=== PATIENT | female | born 1955 | race African-American/Black ===

== ENCOUNTER 2016-05-04 08:31 | Emergency (ER) | payer BC ==
[~2016-05-04] VITALS: Ht 157.5 cm; Wt 104.3 kg
[~2016-05-04 08:31] MED LIST: AMLO5TAB2 PO; ASPI81TA9 PO; CARV6.252 PO; GLUC500T PO; LOSA100T6 PO; METO5TAB55 PO; MULT-658 PO; NAPR220T70 PO; RUTI1TAB PO
[2016-05-04 08:48] LABS: BILIRUBIN,URINE NEGATIVE (NEG); GLUCOSE,URINE NEGATIVE (NEG); NITRITE,URINE NEGATIVE (NEG); PROTEIN,URINE NEGATIVE (NEG-TRACE); UROBILINOGEN,URINE 0.2 mg/dL (0.2 mg/dL)
--- NOTE | 2016-05-04 08:57 | PHYS DOC ---
Past Medical History Past Medical History: Cancer, Hypertension Past Surgical History: Cholecystectomy Adult General Chief Complaint Chief Complaint: ABDOMINAL PAIN HPI HPI Patient is a 60 year old female presents to the emergency department per POV. Patient states she has been having lower abdominal pain since April 23. Patient states she has been seen by her PCP and diagnosed with UTI and an yeast infection. Patient states she is on Macrobid for the UTI and diflucan for the yeast infection. Patient states she has increased pain to the right lower quadrant pain. Patient denies vaginal discharge, denies fever, chills, nausea or vomiting or diarrhea. Patient states she had a stool this morning that was normal. Patient states she has been febrile at home. Review of Systems Review of Systems Constitutional: Denies fever or chills [] Eyes: Denies change in visual acuity, redness, or eye pain [] HENT: Denies nasal congestion or sore throat [] Respiratory: Denies cough or shortness of breath [] Cardiovascular: No additional information not addressed in HPI [] GI: Right lower quadrant abdominal pain, denies nausea, vomiting, bloody stools or diarrhea [] : Denies dysuria or hematuria [] Musculoskeletal: Denies back pain or joint pain [] Integument: Denies rash or skin lesions [] Neurologic: Denies headache, focal weakness or sensory changes [] Current Medications Current Medications Current Medications Medications (Trade) Dose Ordered Sig/Meño Start Time Stop Time Status Last Admin Dose Admin Iohexol (Omnipaque 300 Mg/ml) 75 ml 1X ONCE 05/04/16 10:15 05/04/16 10:16 DC Allergies Allergies Allergies Coded Allergies Type Severity Reaction Last Updated Verified No Known Drug Allergies 06/01/13 No Physical Exam Physical Exam Constitutional: Well developed, well nourished, no acute distress, non-toxic appearance. [] HENT: Normocephalic, atraumatic, bilateral external ears normal, oropharynx moist, no oral exudates, nose normal. [] Eyes: PERRLA, EOMI, conjunctiva normal, no discharge. [] Neck: Normal range of motion, no tenderness, supple, no stridor. [] Cardiovascular:Heart rate regular rhythm, no murmur [] Lungs & Thorax: Bilateral breath sounds clear to auscultation [] Abdomen: Bowel sounds hypoactive, soft, right lower quadrant tenderness, no masses, no pulsatile masses. No rebound tenderness noted, no guarding noted. Skin: Warm, dry, no erythema, no rash. [] Back: No tenderness Extremities: No tenderness, no cyanosis, no clubbing, ROM intact, no edema. [] Neurologic: Alert and oriented X 3, normal motor function, normal sensory function, no focal deficits noted. [] Psychologic: Affect normal, judgement normal, mood normal. [] Current Patient Data Vital Signs Vital Signs Date Time Temp Pulse Resp B/P Pulse Ox O2 Delivery O2 Flow Rate FiO2 05/04/16 08:45 98.2 84 20 152/83 100 Room Air 98.2 Lab Values Laboratory Tests Test 05/04/16 08:40 05/04/16 09:00 Urine Collection Type Void Urine Color Yellow Urine Clarity Clear Urine pH 6.0 Urine Specific [place] <=1.005 Urine Protein Negativemg/dL (NEG-TRACE) Urine Glucose (UA) Negativemg/dL (NEG) Urine Ketones (Stick) Negativemg/dL (NEG) Urine Blood Negative (NEG) Urine Nitrite Negative (NEG) Urine Bilirubin Negative (NEG) Urine Urobilinogen Dipstick 0.2mg/dL (0.2 mg/dL) Urine Leukocyte Esterase Negative (NEG) Urine RBC 0/HPF (0-2) Urine WBC Occ/HPF (0-4) Urine Squamous Epithelial Cells Few/LPF Urine Bacteria Few/HPF (0-FEW) White Blood Count 5.4x10^3/uL (4.0-11.0) Red Blood Count 4.48x10^6/uL (3.50-5.40) Hemoglobin 13.2g/dL (12.0-15.5) Hematocrit 39.2% (36.0-47.0) Mean Corpuscular Volume 88fL (79-100) Mean Corpuscular Hemoglobin 29pg (25-35) Mean Corpuscular Hemoglobin Concent 34g/dL (31-37) Red Cell Distribution Width 12.9% (11.5-14.5) Platelet Count 218x10^3/uL (140-400) Neutrophils (%) (Auto) 61% (31-73) Lymphocytes (%) (Auto) 26% (24-48) Monocytes (%) (Auto) 10% (0-9) H Eosinophils (%) (Auto) 1% (0-3) Basophils (%) (Auto) 1% (0-3) Neutrophils # (Auto) 3.3x10^3uL (1.8-7.7) Lymphocytes # (Auto) 1.4x10^3/uL (1.0-4.8) Monocytes # (Auto) 0.6x10^3/uL (0.0-1.1) Eosinophils # (Auto) 0.0x10^3/uL (0.0-0.7) Basophils # (Auto) 0.1x10^3/uL (0.0-0.2) Sodium Level 139mmol/L (136-145) Potassium Level 3.7mmol/L (3.5-5.1) Chloride Level 102mmol/L (98-107) Carbon Dioxide Level 27mmol/L (21-32) Anion Gap 10 (6-14) Blood Urea Nitrogen 17mg/dL (7-20) Creatinine 0.7mg/dL (0.6-1.0) Estimated GFR (Cockcroft-Gault) 102.6 BUN/Creatinine Ratio 24 (6-20) H Glucose Level 138mg/dL (70-99) H Calcium Level 9.3mg/dL (8.5-10.1) Total Bilirubin 0.3mg/dL (0.2-1.0) Aspartate Amino Transferase (AST) 14U/L (15-37) L Alanine Aminotransferase (ALT) 27U/L (14-59) Alkaline Phosphatase 83U/L (46-116) Total Protein 8.0g/dL (6.4-8.2) Albumin 3.5g/dL (3.4-5.0) Albumin/Globulin Ratio 0.8 (1.0-1.7) L Laboratory Tests 05/04/16 09:00 Laboratory Tests 05/04/16 09:00 EKG EKG [] Radiology/Procedures Radiology/Procedures [][facility] [address] [place], [place] [id number] IMAGING REPORT Signed PATIENT: DAVID ACOSTA ACCOUNT: [id number] : 1955 LOCATION: ER AGE: 60 SEX: F EXAM STATUS: REG ER ORD. PHYSICIAN: ELEAZAR VELASQUEZ NP REASON: right lower quadrant abdominal pain, since April 23 increase pain today PROCEDURE: ABD PELV W/ IV CONTRAST ONLY CT abdomen and pelvis with IV contrast History: Right lower quadrant abdominal pain since April 23, 2016, increasing pain today. Comparison: CT abdomen pelvis 02/02/2011. Technique: After administration of intravenous contrast, 75 mL Omnipaque 300, helical CT of the abdomen and pelvis was performed from the lung bases through the ischial tuberosities. Axial, sagittal, and coronal reconstructions were obtained. One or more of the following individualized dose reduction techniques were utilized for the study: Automated exposure control Adjustment of mA and/or kV according to patient's size Use of iterative reconstruction technique. Findings: Evaluation of enteric structures may be limited by lack of oral contrast. Liver, spleen, pancreas, and bilateral adrenal glands are unremarkable. Cholecystectomy clips are present. Bilateral kidneys enhance symmetrically. Right kidney demonstrates large exophytic cyst measuring 6.6 cm. There is no evidence of bowel obstruction. No free air or free fluid is identified in the abdomen or pelvis. Uterus and adnexa have unremarkable CT appearance. Appendix appears within normal limits. Urinary bladder is unremarkable. Impression: No acute abnormality identified in the abdomen or pelvis. DICTATED and SIGNED BY: AMADOR TUTTLE MD DATE: 05/04/16 1024 CC: ELEAZAR VELASQUEZ NP; AMADOR AVITIA MD ~ Course & Med Decision Making Course & Med Decision Making Pertinent Labs and Imaging studies reviewed. (See chart for details) CBC, CMP within normal limits. Patient's CT scan was negative for no acute abnormalities identified in the abdomen or pelvis although there was a right kidney that demonstrated large exophytic cyst. Patient will be recommended to follow-up with her primary care physician for further evaluations of the cyst. She'll be provided with hydrocodone for pain and discomfort. She'll also be encouraged to drink plenty of fluids and have a high-fiber diet to prevent constipation. Patient will also be encouraged to continue home medications as prescribed. Patient will be provided with signs and symptoms to return back to emergency department. Patient agrees with discharge instructions treatment regimens and follow-up recommendations. [] Dragon Disclaimer Dragon Disclaimer This electronic medical record was generated, in whole or in part, using a voice recognition dictation system. Departure Departure Impression: Primary Impression: Abdominal pain Disposition: HOME, SELF-CARE Condition: STABLE Referrals: AMADOR AVITIA MD (PCP) Patient Instructions: Abdominal Pain, [id number] Additional Instructions: Activity as tolerated. Medications as she had been prescribed at home. Hydrocodone for pain and discomfort. This medication will cause drowsiness do not take any be alert and oriented. You may also drink plenty of fluids and high-fiber diet to prevent constipation. Follow-up with your primary care physician in regards to this cyst on your kidney. Return back to emergency prior signs and symptoms of become worse. Scripts Hydrocodone/Apap 5-325 ([place] 5-325 Tablet)1 Each Tablet1 Tab PO PRN Q6HRS PRN PAIN #10 TAB Prov:ELEAZAR VELASQUEZ NP 05/04/16 ELEAZAR VELASQUEZ NP May 04, 2016 08:57
[2016-05-04 08:58] LABS: BACTERIA,URINE FEW /HPF (0-FEW); RBC,URINE 0 /HPF (0-2); SQUAMOUS EPITHELIAL CELL,UR FEW /LPF; WBC,URINE OCC /HPF (0-4)
[2016-05-04 09:15] LABS: BASO # 0.1 x10^3/uL (0.0-0.2); BASO % 1 % (0-3); EOS % 1 % (0-3); HEMATOCRIT 39.2 % (36.0-47.0); HEMOGLOBIN 13.2 g/dL (12.0-15.5); LYMPH # 1.4 x10^3/uL (1.0-4.8); LYMPH % 26 % (24-48); MEAN CORPUSCULAR HEMOGLOBIN 29 pg (25-35); MEAN CORPUSCULAR HGB CONC 34 g/dL (31-37); MEAN CORPUSCULAR VOLUME 88 fL (79-100); MONO % 10 % (0-9); NEUT % 61 % (31-73); PLATELET COUNT 218 x10^3/uL (140-400); RED BLOOD COUNT 4.48 x10^6/uL (3.50-5.40); RED CELL DISTRIBUTION WIDTH 12.9 % (11.5-14.5); WHITE BLOOD COUNT 5.4 x10^3/uL (4.0-11.0)
[2016-05-04] MEDS ORDERED: IOHEXOL 300 MG/ML 100ML VIAL. IV ONE ×2 (09:15→10:15)
[2016-05-04 09:33] LABS: CALCIUM 9.3 mg/dL (8.5-10.1); CREATININE 0.7 mg/dL (0.6-1.0); GFR 102.6; POTASSIUM 3.7 mmol/L (3.5-5.1)
[2016-05-04 09:41] LABS: ALBUMIN 3.5 g/dL (3.4-5.0); ALBUMIN/GLOBULIN RATIO 0.8 (1.0-1.7); TOTAL BILIRUBIN 0.3 mg/dL (0.2-1.0)
--- NOTE | 2016-05-04 10:30 | RAD ---
CT abdomen and pelvis with IV contrast History: Right lower quadrant abdominal pain since April 23, 2016, increasing pain today. Comparison: CT abdomen pelvis 02/02/2011. Technique: After administration of intravenous contrast, 75 mL Omnipaque 300, helical CT of the abdomen and pelvis was performed from the lung bases through the ischial tuberosities. Axial, sagittal, and coronal reconstructions were obtained. One or more of the following individualized dose reduction techniques were utilized for the study: Automated exposure control Adjustment of mA and/or kV according to patient's size Use of iterative reconstruction technique. Findings: Evaluation of enteric structures may be limited by lack of oral contrast. Liver, spleen, pancreas, and bilateral adrenal glands are unremarkable. Cholecystectomy clips are present. Bilateral kidneys enhance symmetrically. Right kidney demonstrates large exophytic cyst measuring 6.6 cm. There is no evidence of bowel obstruction. No free air or free fluid is identified in the abdomen or pelvis. Uterus and adnexa have unremarkable CT appearance. Appendix appears within normal limits. Urinary bladder is unremarkable. Impression: No acute abnormality identified in the abdomen or pelvis.
[2016-05-04] MEDS ORDERED: HYDR-971 PO (10:45)
[2016-05-04 11:00] VITALS: BP 124/74
== END 2016-05-04 11:10 | disposition home or self-care (01) ==
LOC: ER 08:31
DX: R10.31 Right lower quadrant pain (principal); R50.9 Fever, unspecified; I10 Essential (primary) hypertension; Z90.49 Acquired absence of other specified parts of digestive tract
CPT/HCPCS: 36415; 74177; 80053; 81001; 85027; 99285-25

== ENCOUNTER → 2016-06-07 | Outpatient (CLI) | payer BC ==
[~2016-06-07] MED LIST changes: +HYDR-971 PO
--- NOTE | 2016-06-07 10:03 | RAD ---
EXAM: DIGITAL SCREEN BILAT W/CAD HISTORY: Routine Screening. COMPARISON: 06/05/2015 Standard mammographic views are obtained of the bilateral breasts. This study was interpreted with the benefit of Computerized Aided Detection (CAD). FINDINGS: The breast parenchyma shows scattered fibroglandular densities. Breast parenchyma level II. There is repeat demonstration of focal asymmetry within the right breast with architectural distortion and small size of right breast compared to left which could be from the patient's postoperative changes. No definite new mass is visualized. IMPRESSION: No definite new suspicious mass. BI-RADS CATEGORY: 2 BENIGN FINDING RECOMMENDED FOLLOW-UP: 12M 12 MONTH FOLLOW-UP PQRS compliance statement: Patient information was entered into a reminder system with a target due date for the next mammogram. Mammography is a sensitive method for finding small breast cancers, but it does not detect them all and is not a substitute for careful clinical examination. A negative mammogram does not negate a clinically suspicious finding and should not result in delay in biopsying a clinically suspicious abnormality. "Our facility is accredited by the [employer] Mammography [employer]."
== END | disposition home or self-care (01) ==
LOC: MAMMO 08:33
PROVIDERS: ATTEND Internal Medicine
DX: Z12.31 Encounter for screening mammogram for malignant neoplasm of breast (principal)
CPT/HCPCS: G0202; 77067

== ENCOUNTER → 2017-06-09 | Outpatient (CLI) | payer BC | END | disposition home or self-care (01) | LOC: MAMMO 09:18 | DX: Z12.31 Encounter for screening mammogram for malignant neoplasm of breast (principal); Z85.3 Personal history of malignant neoplasm of breast | CPT/HCPCS: 77067 ==

== ENCOUNTER → 2017-10-13 | Outpatient (CLI) | payer BC | END | disposition home or self-care (01) | LOC: RAD 15:40 | DX: M25.562 Pain in left knee (principal) | CPT/HCPCS: 73562 ==

== ENCOUNTER → 2018-06-09 | Outpatient (CLI) | payer OTHER ==
[~2018-06-09] MED LIST changes: +AMLO5TAB10 PO; -AMLO5TAB2 PO; +ASPI-612 PO; -ASPI81TA9 PO; +CARV6.2511 PO; -CARV6.252 PO; +HYDR-3164 PO; -HYDR-971 PO; +LOSA100T14 PO; -LOSA100T6 PO
--- NOTE | 2018-06-10 09:07 | RAD ---
DATE: 06/09/2018 EXAM: MAMMO KARL SCREENING BILATERAL HISTORY: Previous right breast cancer COMPARISON: 06/09/2017 This study was interpreted with the benefit of Computerized Aided Detection (CAD). Breast Density: SCATTERED The breast parenchyma shows scattered fibroglandular densities. Breast parenchyma level B. FINDINGS: 2-D and 3-D tomosynthesis imaging was performed in CC and MLO projections. There is a spiculated density with breast distortion in the posterolateral aspect of the right breast which is unchanged. This is compatible with post surgical and post radiation change. There is unchanged skin thickening on the right. The underlying fibroglandular pattern in both breasts is heterogeneous. Several small nodular opacities are seen in the left breast, better demonstrated on today's tomosynthesis imaging. Multiple smooth nodule such as this tended to be benign. The largest of these measures 6 mm and is present anteromedially. No spiculated mass or architectural distortion is evident on the left. Benign type calcifications are noted bilaterally. No suspicious microcalcifications are evident. IMPRESSION: 1. Stable post therapeutic findings in the right breast. 2. Several smooth left breast nodules are better demonstrated on today's tomosynthesis imaging due to technical factors. Left breast ultrasound is suggested for further evaluation. BI-RADS CATEGORY: 0 INCOMPLETE: NEEDS ADDITIONAL IMAGING EVALUATION AND/OR PRIOR MAMMOGRAMS FOR COMPARISON. RECOMMENDED FOLLOW-UP: ADD ADDITIONAL IMAGING PQRS compliance statement: Patient information was entered into a reminder system with a target due date for the next mammogram. Mammography is a sensitive method for finding small breast cancers, but it does not detect them all and is not a substitute for careful clinical examination. A negative mammogram does not negate a clinically suspicious finding and should not result in delay in biopsying a clinically suspicious abnormality. "Our facility is accredited by the [employer] Mammography Program."
== END | disposition home or self-care (01) ==
LOC: MAMMO 12:51
PROVIDERS: ATTEND Internal Medicine
DX: Z12.31 Encounter for screening mammogram for malignant neoplasm of breast (principal); N63.20 Unspecified lump in the left breast, unspecified quadrant
CPT/HCPCS: 77063; 77067

== ENCOUNTER → 2018-06-11 | Outpatient (CLI) | payer OTHER ==
--- NOTE | 2018-06-11 12:07 | RAD ---
Left breast ultrasound, 06/11/2018: History: Suspicious screening mammogram The entire breast was carefully scanned. At the 10:00 location approximately 5 cm on the nipple there is a 6 x 4 x 4 mm hypoechoic nodule. Some of its margins are smooth. There is no definite posterior acoustic enhancement or shadowing. Its shape is of some concern being taller than wide. This probably corresponds to the dominant nodule seen on the mammograms, however, that cannot be stated with certainty. At the 2:00 location approximately 5 cm from the nipple there is a 3 x 3 x 4 mm hypoechoic nodule. It is wider than tall. Some of its margins are smooth. There is no definite posterior acoustic enhancement or shadowing. A complicated cyst is suspected. No other breast masses or abnormal fluid collection is seen. IMPRESSION: 1. Mildly suspicious nodule at the 10:00 location as described above. Ultrasound-guided biopsy is suggested for further evaluation. 2. Probably benign nodule at the 2:00 location. Sonographic and mammographic follow-up in 6 months is suggested for surveillance of this nodule. Note: The findings were discussed with the patient at the time of the examination and she understands our recommendation for biopsy. She will follow up with the ordering physician. BI-RADS 4-suspicious abnormality
== END | disposition home or self-care (01) ==
LOC: US 11:01
PROVIDERS: ATTEND Internal Medicine
DX: R92.8 Other abnormal and inconclusive findings on diagnostic imaging of breast (principal)
CPT/HCPCS: 76641

== ENCOUNTER → 2018-06-15 | Outpatient (CLI) | payer OTHER ==
--- NOTE | 2018-06-15 12:49 | RAD ---
Ultrasound-guided needle aspiration of the left breast History: hypoechoic nodule of the left breast of the 10:00 position, complex cyst versus solid nodule. Procedure: The patient provided both verbal and written consent after the procedure and possible complications including bleeding and infection were explained. A timeout was performed which confirmed the name of the patient and date of and type of procedure and side of the procedure. The patient was placed in the supine position on the ultrasound table and an appropriate skin ebenezer was placed on the left breast over the 6 mm lesion which is located at the 11:00 position 5 cm from the nipple today. The left breast was prepped and draped in the usual sterile fashion with ChloraPrep. Total of 5 cc 1% lidocaine was utilized for local anesthesia. Using sterile technique and ultrasound guidance, the a 25-gauge needle used to introduce the local anesthetic was advanced into and through and deep to the nodule. The nodule completely decompressed consistent with a benign cyst. No aspirate was obtained within the syringe and therefore no specimen was sent to pathology. Post aspiration sonography demonstrated no significant hematoma. The patient tolerated the procedure well without complication. IMPRESSION: Ultrasound-guided aspiration of the left breast nodule was performed without complication. The hypoechoic nodule represents a complex cyst (which completely disappears) rather than a solid nodule. This is a benign finding.Therefore, recommend a six-month follow-up left-sided 3-D mammogram and left-sided sonogram to followup the other smaller nodule of the left breast at the 2:00 position 5 cm from the nipple. BI-RADS Category 3 probably benign The patient information was entered into the data reminder system with a target due date for the next mammogram of December 07, 2018. Electronically signed by: Александр Vivar MD (06/15/2018 12:46 PM) [facility]
== END | disposition home or self-care (01) ==
LOC: US 10:02
PROVIDERS: ATTEND Surgery
DX: N60.02 Solitary cyst of left breast (principal)
CPT/HCPCS: 19083; 76942

== ENCOUNTER → 2018-12-09 | Outpatient (CLI) | payer MEDICARE, OTHER ==
--- NOTE | 2018-12-09 11:03 | RAD ---
Indication: Left breast 6 month follow-up. TECHNIQUE: Limited left breast ultrasound. COMPARISON: Previous ultrasound from 06/11/2018. FINDINGS: At 2:00 position approximately 5 cm from the nipple there is an oval-shaped hypoechoic mass with well-circumscribed margins measuring 0.4 x 0.4 x 0.3 cm without internal vascularity. Previously this measured 0.4 x 0.3 x 0.3 cm. IMPRESSION: Stable left breast lesion as described above likely minimally complicated cyst. BI-RADS 3: Probably benign. Follow-up left breast ultrasound in 4-6 months recommended.
== END | disposition home or self-care (01) ==
LOC: US 10:27
PROVIDERS: ATTEND Internal Medicine
DX: N63.21 Unspecified lump in the left breast, upper outer quadrant (principal); K21.9 Gastro-esophageal reflux disease without esophagitis; I10 Essential (primary) hypertension; M19.90 Unspecified osteoarthritis, unspecified site; Z85.3 Personal history of malignant neoplasm of breast
CPT/HCPCS: 76641

== ENCOUNTER → 2019-06-16 | Outpatient (CLI) | payer MEDICARE ==
--- NOTE | 2019-06-16 10:59 | RAD ---
Examination: 1. Limited left breast ultrasound. 2. Bilateral digital diagnostic mammogram. INDICATION: 63-year-old woman due for mammographic screening presents for short-term follow-up probably benign nodule in the upper outer left breast. COMPARISON: Limited left breast ultrasound examinations of 06/11/2018 and 12/09/2018 as well as bilateral mammograms of 06/09/2018 and 06/09/2017. FINDINGS: Scattered fibroglandular densities. Right breast shows benign lumpectomy scar in the posterior upper-outer quadrant at the approximate 11:30 o'clock position 8 cm from the nipple and diffuse right breast skin thickening, compatible with benign posttreatment changes. Left breast shows a nodular parenchymal pattern with no developing mass, suspicious calcification or architectural distortion. Targeted ultrasound of the left breast in the upper outer quadrant in the area of sonographic recommended follow-up identifies a 3 mm sonographically benign cyst at the 2:00 position 5 cm from the nipple that shows no suspicious sonographic features. IMPRESSION: Benign findings on bilateral diagnostic mammogram and targeted left breast ultrasound. No evidence of malignancy. Recommend return to routine screening mammogram next due in one year. BI-RADS Category 2 Benign Patient entered into a reminder system with target due date for next mammogram.
== END ==
LOC: US 09:45
PROVIDERS: ATTEND Internal Medicine
DX: R92.8 Other abnormal and inconclusive findings on diagnostic imaging of breast (principal); Z85.3 Personal history of malignant neoplasm of breast
CPT/HCPCS: 76641; 77066; G0279; 77062

== ENCOUNTER → 2020-06-19 | Outpatient (CLI) | payer MEDICARE ==
[~2020-06-19] MED LIST changes: +AMLO-186 PO; -AMLO5TAB10 PO; -ASPI-612 PO; +ASPI-886 PO; +MELO7.5T29 PO; +METH4TAB2 PO
--- NOTE | 2020-06-20 12:55 | RAD ---
DATE: 06/19/2020 10:41 AM EXAM: MAMMO KARL SCREENING BILATERAL HISTORY: Screening COMPARISON: 06/16/2019 Bilateral CC and MLO views of the breasts were performed. Bilateral breast tomosynthesis was performed in CC and MLO projections. This study was interpreted with the benefit of Computerized Aided Detection (CAD). FINDINGS: Breast Density: HETERO The breast parenchyma Is heterogeneously dense, which could reduce sensitivity of mammography. Breast parenchyma level C Stable benign postsurgical change in the upper outer right breast. No suspicious masses, microcalcifications or unexpected architectural distortion is present to suggest malignancy in either breast. The visualized axillae are unremarkable. IMPRESSION: No mammographic evidence of malignancy. BI-RADS CATEGORY: 2 BENIGN FINDING(S) RECOMMENDED FOLLOW-UP: 12M 12 MONTH FOLLOW-UP Annual screening mammography is recommended, unless clinically indicated sooner based on symptoms or change in physical exam. PQRS compliance statement: Patient information was entered into a reminder system with a target due date for the next mammogram. Mammography is a sensitive method for finding small breast cancers, but it does not detect them all and is not a substitute for careful clinical examination. A negative mammogram does not negate a clinically suspicious finding and should not result in delay in biopsying a clinically suspicious abnormality. "Our facility is accredited by the [employer] Mammography Program."
== END ==
LOC: MAMMO 11:06
PROVIDERS: ATTEND Internal Medicine
DX: Z12.31 Encounter for screening mammogram for malignant neoplasm of breast (principal)
CPT/HCPCS: 77063; 77067

== ENCOUNTER 2020-07-23 16:43 | Emergency (ER) | payer MEDICARE ==
[~2020-07-23] VITALS: Ht 157.5 cm; Wt 104.5 kg
[~2020-07-23 16:43] MED LIST changes: -MELO7.5T29 PO; -METH4TAB2 PO
--- NOTE | 2020-07-23 17:00 | PHYS DOC ---
Past Medical History Past Medical History: Cancer, Hypertension Additional Past Medical Histor: radiation for breast ca Past Surgical History: Cholecystectomy Additional Past Surgical Histo: breast biopsy, lumpectomy Smoking Status: Never Smoker Alcohol Use: None Drug Use: None General Adult EDM: Chief Complaint: KNEE INJURY HPI: HPI: Patient is a 64 year old female who presents to the ED today complaining of 7 out of 10 sharp intermittent left knee pain that began 3 days ago. Patient states the pain is worse when she is walking. Denies anything relieving the pain. Denies any known injuries. She states her right knee also hurts but she does not want it checked. Review of Systems: Review of Systems: Constitutional: Denies fever or chills. [] Musculoskeletal: Reports left knee pain. Denies back pain Integument: Denies rash. [] Neurologic: Denies headache, focal weakness or sensory changes. [] Psychiatric: Denies depression or anxiety. [] Heart Score: C/O Chest Pain: N/A Risk Factors: Risk Factors: DM, Current or recent (<one month) smoker, HTN, HLP, family history of CAD, obesity. Risk Scores: Score 0 - 3: 2.5% MACE over next 6 weeks - Discharge Home Score 4 - 6: 20.3% MACE over next 6 weeks - Admit for Clinical Observation Score 7 - 10: 72.7% MACE over next 6 weeks - Early Invasive Strategies Allergies: Allergies: Allergies Coded Allergies Type Severity Reaction Last Updated Verified No Known Drug Allergies 06/01/13 No Physical Exam: PE: Constitutional: Well developed, well nourished, no acute distress, non-toxic appearance. [] Skin: Warm, dry, no erythema, no rash. [] Back: No tenderness, no CVA tenderness. [] Extremities: Bilateral knees with no obvious deformity. No tenderness on exam, full range of motion to the left knee. +2 left pedal pulse. Cap refill less than 2 seconds in left lower extremity. Sensation intact to the left lower extremity. Neurologic: Alert and oriented X 3, normal motor function, normal sensory function, no focal deficits noted. [] Psychologic: Affect normal, judgement normal, mood normal. [] EKG: EKG: [] Radiology/Procedures: Radiology/Procedures: []PROCEDURE: KNEE LEFT 4V XR KNEE _4 VIEWS WITH PATELLA_LT 07/23/2020 5:33 PM INDICATION: Chronic pain COMPARISON: None available. TECHNIQUE: 4 views of the left knee are provided. FINDINGS/ IMPRESSION: There is no acute fracture or dislocation. There is moderate to advanced medial femorotibial and patellofemoral joint space narrowing with marginal osteophytosis and subcortical sclerosis compatible with moderate to advanced osteoarthrosis. Mild lateral femorotibial osteoarthrosis with joint space narrowing marginal osteophytosis. There is a small knee joint effusion. No subcutaneous gas or osseous erosion. Electronically signed by: Tori Betancur MD (07/23/2020 6:04 PM) [facility] DICTATED and SIGNED BY: TORI BETANCUR MD DATE: 07/23/20 [id number] 0 Course & Med Decision Making: Course & Med Decision Making Pertinent Labs and Imaging studies reviewed. (See chart for details) This is a 64-year-old female patient presenting to the ED today with left knee pain for 3 days, no known injury. Left knee x-rays interpreted by radiologist were noted for advanced DJD otherwise no acute findings. Patient was provided orthopedic doctor for follow-up. Ice elevation encouraged. Leobardo wrap applied to the left knee by me, neurovascular exam is intact. Dragon Disclaimer: Dragon Disclaimer: This electronic medical record was generated, in whole or in part, using a voice recognition dictation system. Departure Departure Impression: Primary Impression: Left knee DJD Qualified Codes: M17.12 - Unilateral primary osteoarthritis, left knee Disposition: 01 DC HOME SELF CARE/HOMELESS Condition: STABLE Referrals: AMADOR AVITIA MD (PCP) NICHOLAS DOSS MD follow up in one week Patient Instructions: Arthritis, Degenerative-Brief Additional Instructions: You were seen for left knee pain, your left knee x-rays were noted for advanced osteoarthritis of the knee. Please follow-up with the provided orthopedic doctor in 1 to 2 weeks. Try to ice and elevate the extremity. Scripts Methylprednisolone (MEDROL) 4 Mg Tab.ds.pk 1 PKG PO UD, #1 PKG Prov: NEVILLE ECHEVERRIA PIECE DYER 07/23/20 Meloxicam (MELOXICAM) 7.5 Mg Tablet 1 TAB PO DAILY, #20 TAB 0 Refills Prov: NEVILLE ECHEVERRIA PIECE DYER 07/23/20 NEVILLE ECHEVERRIA PIECE DYER Jul 23, 2020 17:00
--- NOTE | 2020-07-23 18:06 | RAD ---
XR KNEE _4 VIEWS WITH PATELLA_LT 07/23/2020 5:33 PM INDICATION: Chronic pain COMPARISON: None available. TECHNIQUE: 4 views of the left knee are provided. FINDINGS/ IMPRESSION: There is no acute fracture or dislocation. There is moderate to advanced medial femorotibial and leigh llofemoral joint space narrowing with marginal osteophytosis and subcortical sclerosis compatible wit h moderate to advanced osteoarthrosis. Mild lateral femorotibial osteoarthrosis with joint space narr owing marginal osteophytosis. There is a small knee joint effusion. No subcutaneous gas or osseous er osion. Electronically signed by: Radhika Harkins MD (07/23/2020 6:04 PM) [facility]
[2020-07-23] MEDS ORDERED: METH4TAB2 PO (18:13)
[2020-07-23] MEDS ORDERED: MELO7.5T29 PO (18:13)
[2020-07-23 18:30] VITALS: BP 132/64
== END 2020-07-23 18:30 | disposition home or self-care (01) ==
LOC: ER 16:43
DX: M17.12 Unilateral primary osteoarthritis, left knee (principal); R20.2 Paresthesia of skin; I10 Essential (primary) hypertension; Z85.3 Personal history of malignant neoplasm of breast; Z90.89 Acquired absence of other organs; Z90.49 Acquired absence of other specified parts of digestive tract; Z98.890 Other specified postprocedural states
CPT/HCPCS: 73564; 99283

== ENCOUNTER → 2021-06-20 | Outpatient (CLI) | payer MEDICARE ==
[~2021-06-20] MED LIST changes: +MELO7.5T29 PO; +METH4TAB2 PO
--- NOTE | 2021-06-20 12:46 | RAD ---
INDICATION: 65 years of age asymptomatic female patient presents for screening mammography. History o f right breast lumpectomy in 2013. No personal history of breast cancer. Family history breast cancer in daughter age 38. TECHNIQUE: Full field craniocaudal and mediolateral oblique images of both breasts were obtained usi ng digital technique with tomosynthesis and also analyzed with computer-aided detection software. COMPARISON: Prior mammographic imaging dating back to 06/07/2016. BREAST COMPOSITION: Category C: The breast tissue is heterogeneously dense, which could obscure detec tion of small masses. FINDINGS: Stable post lumpectomy changes in the right upper outer breast, posterior depth. No suspicious masses, microcalcifications or architectural distortion is present to suggest malignanc y in either breast. The visualized axillae are unremarkable. IMPRESSION: No mammographic evidence of malignancy. RECOMMENDATION: Annual screening mammography is recommended, unless clinically indicated sooner based on symptoms or change in physical exam. BIRADS 2: BENIGN This study was interpreted with the benefit of Computerized Aided Detection (CAD). ?Your patient's mammogram demonstrates that she has dense breast tissue (breast density category C or D), which could hide abnormalities, and if she has other risk factors for breast cancer that have be en identified, she might benefit from supplemental screening tests that may be suggested by you as he r ordering physician. Dense breast tissue, in and of itself, is a relatively common condition. Theref ore, this information is not provided to cause undue concern, but rather to raise your awareness and to promote discussion with your patient regarding the presence of other risk factors, in addition to dense breast tissue. Your patient's mammography results will be sent to her. Patient information is entered into the reminder system with a target due date for the next screening mammogram. Mammography is the most sensitive method for finding small breast cancers, but it does not detect the m all and is not a substitute for careful clinical examination. A negative mammogram does not negate a clinically suspicious finding and should not result in delay in biopsying a clinically suspicious a bnormality. "Our facility is accredited by the [employer] Mammography Program." Electronically signed by: Freddy Valdez DO (06/20/2021 12:42 PM) [id number]
== END ==
LOC: MAMMO 10:32
PROVIDERS: ATTEND Internal Medicine
DX: Z12.31 Encounter for screening mammogram for malignant neoplasm of breast (principal)
CPT/HCPCS: 77063; 77067